=== PATIENT | female | born 1940 | race Caucasian/White ===

== ENCOUNTER 2021-09-19 14:45 | Emergency (ER) | payer MEDICARE ==
[~2021-09-19] VITALS: Ht 162.6 cm; Wt 58.1 kg
--- NOTE | 2021-09-19 14:50 | NUR ---
BIBA THIS 81YO FEMALE PT WITH CC OF GENERALIZED BODY WEAKNESS. PT PLACED COMFORTABLE ON BED. PT ALERT, ORIENTED X4.
[2021-09-19] MEDS ORDERED: LEVO112T2 PO (14:57)
[2021-09-19] MEDS ORDERED: PRIM50TA27 PO (14:57)
[2021-09-19] MEDS ORDERED: ASCO-352 PO (14:57)
[2021-09-19] MEDS ORDERED: OMEG1CAP18 PO (14:57)
[2021-09-19] MEDS ORDERED: ATOR10TA PO (14:57)
[2021-09-19] MEDS ORDERED: [UNRECOGNIZED DRUG - OTHER] PO (14:57)
[2021-09-19] MEDS ORDERED: ACET-2605 PO (14:57)
[2021-09-19] MEDS ORDERED: BISA5TAB10 PO (14:57)
[2021-09-19] MEDS ORDERED: LOPE2CAP40 PO (14:57)
[2021-09-19] MEDS ORDERED: CBD TD (14:57)
[2021-09-19] MEDS ORDERED: CHOL100043 PO (14:57)
[2021-09-19] MEDS ORDERED: ASPI-1169 PO (14:57)
[2021-09-19] MEDS ORDERED: LITH150C PO (14:57)
[2021-09-19] MEDS ORDERED: LIDO30AD10 TP (14:57)
[2021-09-19] MEDS ORDERED: GINK120C PO (14:57)
[2021-09-19] MEDS ORDERED: METO25TA3 PO (14:57)
--- NOTE | 2021-09-19 15:00 | NUR ---
IV CANNULA INSERTED ON RT FA USING G20 NEEDLE.
--- NOTE | 2021-09-19 15:10 | NUR ---
DEPENDENCY CASE MANAGER AT BEDSIDE
--- NOTE | 2021-09-19 15:45 | NUR ---
CXR DONE AT BEDSIDE
[2021-09-19 16:09] LABS: BASOPHILS % (AUTO) 0.3 % (0.0-2.0); EOSINOPHILS % (AUTO) 0.9 % (0.0-6.0); HEMATOCRIT 40 % (33-45); HEMOGLOBIN 13.1 g/dL (11.5-14.8); LYMPHOCYTES # (AUTO) 0.4 K/uL (0.8-4.8); LYMPHOCYTES % (AUTO) 4.4 % (20.0-44.0); MEAN CORPUSCULAR HGB CONC 33 g/dl (31.0-36.0); MEAN CORPUSCULAR VOLUME 100 fL (82-100); MONOCYTES # (AUTO) 0.7 K/uL (0.1-1.30); MONOCYTES % (AUTO) 7.8 % (2.0-12.0); NEUTROPHILS # (AUTO) 7.7 K/uL (1.8-8.9); NEUTROPHILS % (AUTO) 86.6 % (43.0-81.0); PLATELET COUNT (AUTO) 362 K/uL (150-450); WHITE BLOOD COUNT (AUTO) 8.9 K/uL (4.3-11.0)
[2021-09-19 16:38] LABS: MAGNESIUM 1.9 mg/dL (1.8-2.4)
[2021-09-19 17:24] LABS: ALANINE AMINOTRANSFERASE 25 U/L (12-78); ALBUMIN 2.4 g/dL (3.4-5.0); ALKALINE PHOSPHATASE 95 U/L (46-116); ASPARTATE AMINOTRANSFERASE 20 U/L (15-37); BILIRUBIN,DIRECT 0.1 mg/dL (0.0-0.2); BILIRUBIN,TOTAL 0.1 mg/dL (0.2-1.0); CALCIUM, SERUM 10.8 mg/dL (8.5-10.1); CARBON DIOXIDE 24 mmol/L (21-32); CHLORIDE 103 mmol/L (98-107); CREATININE 1.5 mg/dL (0.6-1.3); GLUCOSE 152 mg/dL (74-106); POTASSIUM 3.9 mmol/L (3.5-5.1); SODIUM SERUM 136 mmol/L (136-145); TOTAL PROTEIN, SERUM 6.3 g/dL (6.4-8.2); UREA NITROGEN, BLOOD 35 mg/dL (7-18)
--- NOTE | 2021-09-19 17:27 | NUR ---
PER PUTTY TINTER MAKER CANDICE, THE PATIENT WILL GO TO [facility]. CANDICE WILL CALL TO GIVEN REPORT NUMBER.
--- NOTE | 2021-09-19 17:43 | NUR ---
COVID ANTIGEN SWAB DONE AND SENT TO THE LAB
--- NOTE | 2021-09-19 18:01 | NUR ---
PER FINISHER TAILOR APPRENTICE CANDICE THE PATIENT WILL GO TO [facility] ROOM #112B, REPORT NUMBER IS [phone], [facility] DIRECTOR OF [facility] AT 1900.
--- NOTE | 2021-09-19 19:22 | NUR ---
IV CANNULA REMOVED. PATIENT WILL BE TRANSFERING TO [facility] VIA GURNEY BY [place] PROFESSIONAL AFTER REPORTS BE MADE TO THE SNF. STILL WAITING FOR COVID ANTIGEN RESULT SO WE CAN GIVE REPORT.
--- NOTE | 2021-09-19 19:50 | NUR ---
GAVE REPORT TO NURSE SIMON OF [facility] #[phone]. PATIENT WILL BE GOING TO RM 112[address]
--- NOTE | 2021-09-19 19:58 | NUR ---
Patient discharged to [facility] in stable condition. Written and verbal after care instructions given. Patient verbalizes understanding of instruction. Endorsement done to Nurse Enrique.
[2021-09-19 20:00] VITALS: BP 111/74
== END 2021-09-19 20:02 ==
LOC: ER 14:53
DX: R62.7 Adult failure to thrive (principal); Z68.22 Body mass index [BMI] 22.0-22.9, adult; E03.8 Other specified hypothyroidism; Z20.822 Contact with and (suspected) exposure to COVID-19; N17.9 Acute kidney failure, unspecified; R91.8 Other nonspecific abnormal finding of lung field; I10 Essential (primary) hypertension; Z79.899 Other long term (current) drug therapy; F31.9 Bipolar disorder, unspecified; Z85.89 Personal history of malignant neoplasm of other organs and systems; F03.90 Unspecified dementia, unspecified severity, without behavioral disturbance, psychotic disturbance, mood disturbance, and anxiety; Z79.890 Hormone replacement therapy; Z79.82 Long term (current) use of aspirin
CPT/HCPCS: 36415; 71045-TC; 80048-TC; 80076-TC; 83690-TC; 83735-TC; 83880; 84439-TC; 84443-TC; 84484-TC; 85025-TC; C9803